=== PATIENT | male | born 1980 ===

== ENCOUNTER 2024-09-21 13:48 | Emergency (ER) | payer OTHER ==
[~2024-09-21] VITALS: Ht 180.3 cm; Wt 89.8 kg
[~2024-09-21 13:48] MED LIST: ALBU90OI INH; CEPH500 PO; ERYT333ERA PO; HYDACE5 PO; HYDACE5325 PO; HYDGUAL120 PO; IBUP800 PO; NAPR550 PO; RXNAPNA550 PO; RXOXYACE PO
[2024-09-21 14:18] VITALS: BP 128/97
[2024-09-21] MEDS ORDERED: Ibuprofen 400 MG Tab PO ONE (16:40)
== END 2024-09-21 17:53 | disposition home or self-care (01) ==
LOC: ER 13:48
DX: M79.671 Pain in right foot (principal); Z88.0 Allergy status to penicillin
CPT/HCPCS: 73620; 99283-25; A9270